=== PATIENT | male | born 1995 | race African-American/Black ===

== ENCOUNTER 2018-01-12 23:02 | Emergency (ER) | payer OTHER ==
[~2018-01-12] VITALS: Ht 185.4 cm; Wt 104.3 kg
[~2018-01-12 23:02] MED LIST: AMOXICILLIN 50500 MG PO; HYDROCODONE-AP1 EAC6 PO; IBUPROFEN 800800 M1 PO; ULTRAM 50MG TAB50 MG PO
[2018-01-13 01:37] VITALS: BP 129/75
== END 2018-01-13 02:00 | disposition home or self-care (01) ==
LOC: ER 23:02
DX: S61.411A Laceration without foreign body of right hand, initial encounter (principal); W22.8XXA Striking against or struck by other objects, initial encounter; Y93.89 Activity, other specified; Y92.89 Other specified places as the place of occurrence of the external cause; Y99.8 Other external cause status